=== PATIENT | male | born 1955 | race Caucasian/White ===

== ENCOUNTER 2024-10-07 18:18 | Observation (INO) | payer BC, SELFPAY ==
[2024-10-07] VITALS (10 sets, daily range): BP systolic 140–169; BP diastolic 88–112; PULSE 75–81; BMI 27.3; BMI 27.1
--- NOTE | 2024-10-07 15:47 | ED.GENMED ---
History of Present Illness
General
Chief Complaint: Heart Rate Problem
Source: patient and physician
Time Seen by Provider: 10/07/24 15:30
History of Present Illness
History of Present Illness:
68-year-old male with past medical history of hypertension hyperlipidemia, asthma presenting to the emergency department for evaluation at the request of primary care provider who is sending the patient from her office for evaluation after the
patient has been experiencing some exertional dyspnea as well as near syncopal events for the past year but acutely worse over the last week or so to the point where patient is now ambulating just a few steps and feeling as if he is going to pass
out. Patient states there is no chest pain with this but his son did state that the patient did note that he had some left arm pain and mention that he felt a little sweaty earlier today as well. Patient denies any fevers, chills, rigors, cough,
current chest pain or any symptoms presently. Patient's primary care provider did note that the patient's heart rate at the office would range from 60 bpm to up as high as around the 130 beats per minute. Patient notes that he had a cardiac workup
maybe about 4 years or so ago with a stress test and echocardiogram and recalls these test being unremarkable for any pathologies. Family history was noted for father passing away at the age of 59 due to an NM and his grandfather having a few
strokes. Also of note, patient does not take any medications for his hypertension or hypercholesterolemia as he states that he had some side effects from the blood pressure medicine so decided to stop taking this a few years ago.
Past History
Past History
ED Past Medical History: Asthma, HTN and Hypercholesterolemia
ED Past Surgical History: Orthopedic, Tonsilectomy and Other
Social History
Tobacco: Non-smoker
Alcohol: Occasional
Drug: None
Personal:
Living: with family
Employment: Employed
Review of Systems
Review of Systems
All Other Systems: ROS reviewed and negative except as documented in HPI and ROS
Phy Exam
Physical Exam
Physical Exam:
GENERAL: Alert , in no apparent distress
HEAD: NCAT
EYE: conjunctiva clear
NECK: Supple
ENT: o/p clr, mmm.
CARDIAC: Regular rate and rhythm, no murmur
LUNGS: Clear breath sounds bilaterally, no acute respiratory distress, no wheezes/rales/rhonchi
NEUROLOGICAL: Alert and oriented
SKIN: Warm and dry, skin intact.
MUSCULOSKELETAL: well perfused.
PSYCH: Normal and appropriate interaction.
Scores
Heart Failure Risk
Heart Failure Risk Score: Yes
History of Stroke or TIA: No
History of intubation for respiratory distress: No
Heart rate on ED arrival >/= 110: No
SaO2 <90% on arrival on room air: No
HR >/=110 during 3min walk test (or too ill to perform test): No
ECG has acute ischemic changes: No
Urea >/=12mmol/L (BUN 33.6mg/dL): No
Serum CO2>/=35mmol/L: No
Troponin I or T elevated to NM Level (0.4mg/dL): No
NT-proBNP >/=5,000ng/L (5,000pg/ml): No
HF Risk Score: 0
Admission Status: LOW RISK 2.8% Consider discharge to home with f/u visit to PCP/Rv Repair Technician
Heart Score for Chest Pain Patients
STEMI patient?: No
History: Moderately Suspicious
ECG: Normal
Age: >/= 65 years
Risk Factors: 1 or 2 Risk Factors
Troponin: </= Normal Limit
Heart Score for Chest Pain Patients: 4
Heart Score Risk: 20.3% MACE over next 6 weeks
Withdrawal Assessment of Alcohol
Withdrawal Assessment Completed?: Not applicable
Course
Orders/Labs/Results
Orders:
Orders
10/07/24 13:27
EKG [Electrocardiogram (*1)] Urgent
Reason for Study: Tachycardia
EKG- Treatment ONCE
10/07/24 15:31
Orthostatic VS- Treatment ONCE
CR Chest - 2 Views Urgent
Comment:
Reason For Exam: SMITH
10/07/24 15:54
Aspirin Chewable [Low Strength Aspirin] 324 mg PO NOW STA
10/07/24 16:13
Basic Metabolic Panel Urgent
Complete Blood Count/With Diff Urgent
Magnesium Urgent
NT-proBNP Urgent
TSH Urgent
Troponin I Urgent
Abnormal Lab Results
10/07/24
16:13
WBC 12.3 H 10^3/uL
(4.8-10.8)
Absolute Neuts (auto) 7.6 H 10^3/uL
(1.4-6.5)
Absolute Lymphs (auto) 3.7 H 10^3/uL
(1.2-3.4)
Absolute Monos (auto) 0.7 H 10^3/uL
(0.1-0.6)
BUN 27 H mg/dl
(9-20)
Glucose 128 H mg/dl
(70-99)
10/07/24 16:13
10/07/24 16:13
Vital Signs
Initial and Last Documented VS:
Initial Vital Signs
Temp Pulse Resp BP Pulse Ox
98.3 F 93 19 158/105 99
10/07/24 13:32 10/07/24 13:32 10/07/24 13:32 10/07/24 13:32 10/07/24 13:32
Last Documented Vital Signs
Temp Pulse Resp BP Pulse Ox
98.3 F 73 17 146/109 97
10/07/24 13:32 10/07/24 16:45 10/07/24 16:45 10/07/24 16:14 10/07/24 16:45
MDM/Problems Addressed
Differential Diagnosis Includes:
Cardiac arrhythmia/dysrhythmia, valvular dysfunction, ACS, CHF
MDM/Problems Addressed:
68-year-old male presenting to the ER at the request of primary care provider for evaluation of patient experiencing multiple near syncopal events that have been gradually worsening for the better part of the last few weeks to the point where
patient is now not even able to work due to his symptoms. Patient is currently asymptomatic. Hemodynamically stable EKG without any significant changes from past. Patient had an echocardiogram done in 2019 which did not show any significant
abnormalities. Based off history and presentation I do have considerable concern that patient is having some type of cardiac abnormality that is leading to his symptoms. Anticipate patient will be admitted for further evaluation and testing with
cardiology services.
*Radiology
Radiology exam reviewed: radiology read reviewed
*Pulse Oximetry
Patient hypoxic: no
*EKG
Interpreted by ED Provider?: Yes
Comparison EKG: no changes
Heart Rate: 86
Rate: normal
Rhythm: sinus
[place]: right axis deviation
*Rehab Trainer Interpretation
Rate: normal
Rhythm: sinus
*Critical Care Note
Total Time (30-74mins, 75-104mins- exclusive of procedures): Not Applicable
Data Reviewed
Review of Other/Old Records Reveals: Labs and Records
Patient Management
Discussion with other providers: Hospitalist
Escalation/DeEscalation of care consider admission/obs:
Hospitalist team notified and accepts patient for continued evaluation and treatment. They will consult with cardiology team for further evaluation.
ED Attending Note
-
Portions of this chart may have been created with voice recognition software.� Occasional wrong word or��sound alike� substitutions may have occurred due to the inherent limitations of voice recognition software.
Discharge Plan
Departure
Patient Disposition: Admit
Date of Disposition: 10/07/24
Time of Disposition: 17:09
Presentation/result/management discussed w/ accepting MD/DO: Hospitalist
Discharge Problem:
Exertional dyspnea, Near syncope, Hypertension
Prescriptions:
No Action
trazodone 50 mg Tablet
100 mg PO HSPRN PRN (Reason: sleep)
montelukast 10 mg Tablet
10 mg PO DAILY
albuterol sulfate 90 mcg/actuation Hfa Aerosol Inhaler
2 puff INHALATION R Q4HPRN PRN (Reason: sob)
Arnuity Ellipta 100 mcg/actuation Blister With Device
1 inh INHALATION R DAILY
Referrals:
Jenn Marshall MD [Family Provider] -
Interventions
Interventions:
*Risk Screen - Suicide Last Done: 10/07/24 13:32
*General Assessment Last Done: 10/07/24 15:47
*Neglect/Abuse Screening Last Done: 10/07/24 13:32
ED- Fall Risk Assessment Last Done: 10/07/24 15:47
*ED COVID-19 Vaccine History Last Done: 10/07/24 15:47
ED- Cardiac Assessment Last Done: 10/07/24 15:47
ED- Neurological Assessment Last Done: 10/07/24 15:47
ED- Pulmonary Assessment Last Done: 10/07/24 15:47
Discharge Date and Time
Print Language: KAZAKH
[2024-10-07] MEDS: LOW STRENGTH ASPIRIN 324 MG PO (16:06)
[2024-10-07 16:25] LABS: % Basophils 0.4 % (0-2); % Eosinophils 1.1 % (0-6); % Immature Granulocytes 0.3 % (0-0.5); % Lymphocytes 30.3 % (20.5-51.1); % Monocytes 5.7 % (1.7-9.3); % Neutrophils 62.2 % (42.2-75.2); Absolute Basophils 0.1 10^3/uL (0-0.2); Absolute Eosinophils 0.1 10^3/uL (0-0.7); Absolute Lymphocytes 3.7 10^3/uL (1.2-3.4); Absolute Monocytes 0.7 10^3/uL (0.1-0.6); Absolute Neutrophils 7.6 10^3/uL (1.4-6.5); Hemoglobin 15.8 g/dL (13.0-18.0); Mean Corp Hgb Conc. 34.3 g/dL (33.0-37.0); Mean Corpuscular Hgb 29.4 pg (27.0-31.0); Mean Corpuscular Volume 85.7 fL (80.0-94.0); Nucleated Red Blood Cells % 0 % (-); Platelet Count 283 10^3/uL (130-400); Red Blood Cell Count 5.37 10^6/uL (4.70-6.10); Red Cell Dist. Width 13.8 % (11.5-14.5); White Blood Cell Count 12.3 10^3/uL (4.8-10.8)
[2024-10-07 16:45] LABS: Blood Urea Nitrogen 27 mg/dl (9-20); Carbon Dioxide 28 mmol/L (22-30); Chloride 101 mmol/L (98-107); Estimated Creatinine Clearance 83 ml/min; Glucose 128 mg/dl (70-99); Magnesium 2.2 mg/dl (1.6-2.3); Potassium 4.4 mmol/L (3.5-5.1); Sodium 141 mmol/L (135-145); eGFR > 60.00
[2024-10-07 17:01] LABS: NT-proBNP 532 pg/ml; Troponin I 0.012 ng/ml
[2024-10-07 17:15] LABS: TSH 0.75 uIU/ml (0.47-4.68)
--- NOTE | 2024-10-07 17:23 | HPS.HSE ---
Family Physician
-
Family Physician: Jenn Marshall MD
Chief Complaint
-
syncope
History of Present Illness
Mr. Zachery Louis is a 68 yo man with hx asthma, essential HTN, HLD sent from PCP for further work-up of near syncopal events over past week that occur with exertion.
Patient reports a couple of episodes one year ago when he was on a trip where stood up and felt lightheaded. Over past week he has had 3-4 episodes a day of feeling like he going to pass out and needs to sit down. Denies chest pain. Son reported
to ER physician that he had left arm pain earlier although patient denies. He states these episodes occur when up and walking around in his shop or lifting heavy objects. Denies complete syncopal episode. He states he is eating and drinking well.
No bowel/bladder incontinence, no confusion following episodes. Last time pre-syncope occurred was yesterday and he is here because asked him to come.
No nausea/vomiting/abdominal pain. No LE swelling. No rash. No new medications.
He was on anti-HTN medications in past but stopped secondary to side effects.
Family history notable for father passing away at age 59 secondary to IA, grandfather with history of CVA.
Medical History
Past Medical History
Past Medical History: Reports Asthma, HTN and Hypercholesterolemia
Past Surgical History: Reports Orthopedic
Social History
Tobacco: Non-smoker
Alcohol: None
Family History
Family History: Not pertinent and Early CAD
Allergies / Home Medications
Allergies reflects when Allergies were last updated in [facility].
Home Medications with original date entered in [facility]
Allergy/Medication List:
Allergies
Allergy/AdvReac Type Severity Reaction Status Date / Time
cat dander Allergy Pharmacy Verified 01/14/22 16:57
to Review
dogs Allergy itchy Uncoded 01/14/22 16:57
eyes,
asthma
Home Medications
albuterol sulfate 90 mcg/actuation aerosol inhaler 2 puff inhalation R Q4HPRN PRN sob 10/07/24
fluticasone furoate 100 mcg/actuation blister powder for inhalation (Arnuity Ellipta) 1 inh inhalation R DAILY Lung/Breathing Issues 10/07/24
montelukast 10 mg tablet 10 mg PO DAILY Allergies 10/07/24
trazodone 50 mg tablet 100 mg PO HSPRN PRN sleep 10/07/24
Review of Systems
-
History Source: Patient
A 12 point ROS was completed and negative except as noted: Yes
Physical Exam
Vital Signs
Vital Signs
Temp Pulse Resp BP Pulse Ox
98.3 F 73 17 146/109 97
10/07/24 13:32 10/07/24 16:45 10/07/24 16:45 10/07/24 16:14 10/07/24 16:45
Physical Exam
General: No Apparent Distress
HEENT: PERRLA
Respiratory: Clear; No Wheezes
Cardiac: S1/S2 and Regular Rhythm
GI: Soft and Non Tender
Musculoskeletal: No Edema
Skin: Warm and Dry; No Rash
Neuro: AO x 3
Psych: Calm
Laboratory Results
-
10/07/24 16:13
10/07/24 16:13
Laboratory Results
Troponin I 0.012 ng/ml 10/07/24 16:13
Data Reviewed
-
Diagnostic Radiology: Report Reviewed by me
Lab Data: Labs Reviewed by me
Impression/Plan
-
Mr. Zachery Louis is a 68 yo man with hx asthma, essential HTN, HLD sent from PCP for further work-up of near syncopal events over past week.
Triage VS: T 98.3, P 93, RR 19, BP 158/105, SpO2 99%
LABS: WBC 12.3, Hg 15.8, PLT 283, Na 141, K+ 4.4, CO2 28, BUN 27, Cr 0.8, Glucose 128, Trop 0.012, BNP 532, TSH 0.75
ekg: NSR @ 86, Q waves anterior leads
CXR
IMPRESSION:
No acute cardiopulmonary process.
Near Syncope
-admit to telemetry
-obtain d-dimer
-trend Troponin
-TTE
-cardiology consult given patient's family history and occurs with exertion
Asthma
-REFUGE MANAGER inhalers
DVT PPx lovenox subQ
FULL CODE
[2024-10-07] MEDS: FLOVENT 44 MCG INHALER 2 PUFF INH (20:08)
[2024-10-07] MEDS: NSS 500 IV (20:17)
[2024-10-07 22:41] LABS: Troponin I < 0.012 ng/ml
[2024-10-08] VITALS (10 sets, daily range): BP systolic 128–187; BP diastolic 74–114; PULSE 77–89
[2024-10-08 04:33] LABS: Hematocrit 43.4 % (39.0-52.0); Hemoglobin 14.9 g/dL (13.0-18.0); Mean Corp Hgb Conc. 34.3 g/dL (33.0-37.0); Mean Corpuscular Hgb 30.7 pg (27.0-31.0); Mean Corpuscular Volume 89.5 fL (80.0-94.0); Mean Platelet Volume 9.1 fL (7.4-10.4); Platelet Count 253 10^3/uL (130-400); Red Blood Cell Count 4.85 10^6/uL (4.70-6.10); Red Cell Dist. Width 13.5 % (11.5-14.5); White Blood Cell Count 8.5 10^3/uL (4.8-10.8)
[2024-10-08 04:57] LABS: Blood Urea Nitrogen 25 mg/dl (9-20); Calcium 9.2 mg/dl (8.4-10.2); Carbon Dioxide 27 mmol/L (22-30); Chloride 104 mmol/L (98-107); Estimated Creatinine Clearance 80 ml/min; Glucose 122 mg/dl (70-99); Magnesium 2.2 mg/dl (1.6-2.3); Potassium 4.4 mmol/L (3.5-5.1); Sodium 140 mmol/L (135-145); eGFR > 60.00
[2024-10-08 05:50] LABS: Troponin I < 0.012 ng/ml
[2024-10-08] MEDS: FLOVENT 44 MCG INHALER 2 PUFF INH (07:54)
[2024-10-08] MEDS: SINGULAIR 10 MG PO (08:26)
--- NOTE | 2024-10-08 08:28 | CON.CAR ---
Addendum entered and electronically signed by Sunil Rees MD 10/08/24 13:07:
68 yo with PMH of HTN (untreated, reported side effects to meds in past), FH CAD is admitted with SMITH and near syncope. Symptoms started about 1 year old, and seem to be progressing. There is no chest pain. Exam with RRR, no murmurs, no edema.
Tele and EKG: NSR. Cr 0.8.
Will start with echo to assess LVEF and valves. If echo is normal, we will recommend stress test: inpatient vs outpatient to determined.
HTN. Untreated prior to admission. Amlodipine was started by hospitalist team. May need to add agent with quicker onset of action such as lisinopril prior to discharge.
Original Note:
Consultation
Consultation Request
Date/Time Consultation Requested: 10/07/2024 19:30
Date/Time Consultation Performed: 10/08/2024 08:30
Requesting Provider: Dr. George
Performing Provider: JAMIR Olivares for Dr. Rees
Reason for Consultation: Exertional dyspnea
Medical History
-
Chief Complaint: Presyncope
History of Present Illness:
Zachery Louis is a 68-year-old male (formerly followed by Dr. Shi), with hypertension (on no medical therapy), dyslipidemia, and asthma who presented to the emergency department with a chief complaint of near syncope. Symptoms started nearly 1
year ago as mild in severity. They are now severe. Around 1 year ago he would get short of breath after walking about 25 yards. Now he has to stop multiple times throughout the grocery store. Occasionally, they sound orthostatic in nature as
symptoms occur after standing. Now they are occurring when he is ambulating on a flat surface or picks up an object. He gets very lightheaded where he feels like he may pass out. He reports the lightheadedness is severe. He has no chest pain.
Coronary artery disease notable in his father, at the age of 59 secondary to myocardial infarction.
Past Medical History
Past Medical History: Asthma, HTN and Hypercholesterolemia
Past Surgical History: Orthopedic
Social History
Tobacco: Former Smoker (Pipe)
Alcohol: None
Drug: None
Personal:
Living: With Family
Employment: Retired
Family History
Family History: Early CAD (Father at the age of 59 due to complications of myocardial infarction.)
Allergies / Home Medications
Allergy/AdvReac Type Severity Reaction Status Date / Time
cat dander Allergy Unknown Verified 10/07/24 19:51
dog dander Allergy itchy Verified 10/07/24 19:51
eyes,
asthma
�Medication �Instructions �Recorded �Confirmed �Type
albuterol sulfate 90 mcg/actuation 2 puff inhalation R Q4HPRN PRN sob 10/07/24 10/07/24 History
aerosol inhaler
fluticasone furoate 100 1 inh inhalation R DAILY 10/07/24 10/07/24 History
mcg/actuation blister powder for Lung/Breathing Issues
inhalation (Arnuity Ellipta)
montelukast 10 mg tablet 10 mg PO DAILY Allergies 10/07/24 10/07/24 History
trazodone 50 mg tablet 100 mg PO HSPRN PRN sleep 10/07/24 10/07/24 History
Review of Systems
-
History Source: Patient
All other systems: Negative unless noted
Constitutional: Fatigue
EENT: No Symptoms
Respiratory: No Symptoms
Cardiac: Other (Exertional lightheadedness)
Abdomen/GI: No Symptoms
: No Symptoms
Musculoskeletal: No Symptoms
Skin: No Symptoms
Neurological: Dizzy
Endocrine: No Symptoms
Hematologic/Lymphatic: No Symptoms
Physical Exam
Vital Signs
Temp Pulse Resp BP Pulse Ox
98.6 F 87 16 173/96 97
10/08/24 07:24 10/08/24 07:57 10/08/24 07:57 10/08/24 07:24 10/08/24 07:57
Lab Results
10/08/24 04:11
10/08/24 04:11
Troponin I < 0.012 ng/ml 10/08/24 04:11
Ksh-D-Vxkluuknwgh Pept 532 pg/ml 10/07/24 16:13
Physical Exam
General: Well Developed, Well Nourished, No Apparent Distress and Comfortable
HEENT: Normocephalic, Anicteric and Moist Mucous Membranes
Respiratory: Clear and Non Labored Respirations
Cardiac: S1/S2 and Regular Rhythm
Breast: Deferred by me
GI: Soft, Non Tender, Non Distended and Normal Bowel Sounds
Rectal: Deferred by Provider
Genito-urinary: No Costovertebral Tender
Musculoskeletal: No Clubbing, No Cyanosis and No Edema
Skin: Warm and Dry
Neuro: AO x 3
Hematologic/Lymphatic: No Lymphadenopathy
Psych: Calm
Impression / Plan
-
BACKGROUND: 68M with complaints of pre syncope
IMPRESSION/PLAN:
Exertional lightheadedness with presyncope
-Some situations on like orthostasis, but most severe is with ambulation
-Troponin <0.012 x 3, D-dimer 0.30, CXR without acute processes
-Echocardiogram, likely ischemic evaluation
Hypertension
-He did not tolerate multiple medications, he also has an element of orthostasis
HLD, fasting lipid panel in a.m.
Asthma, no acute exacerbation, per primary
Data Reviewed
-
EKG: Report Reviewed by me (Sinus rhythm, right axis deviation, anterior Q waves, rate 86)
Radiology: Report Reviewed by me (CXR: No acute cardiopulmonary process.)
Labs: Labs Reviewed by me
Old Records: Reviewed
--- NOTE | 2024-10-08 10:45 | PTCARENOTE ---
Patient's EKG today shows NSR. Echocardiogram completed and results pending. Denies lightheadedness or dizziness.
--- NOTE | 2024-10-08 11:02 | CM ---
Pt seen bedside. Pt lives w/ spouse in a 3 story [facility]-1 step to enter.
Independent, denies DME use for daily functioning
Denies SNF hx. Did engage in OP rehab
Denies VN/PT in the past
Denies financial insecurities
Address, point of contact, and insurance verified
PCP: Dr. Jenn Marshall
Pharmacy: [facility]
OOBS form reviewed, pt given copy. Copy placed in chart
Per pt, his son can transport at d/c
Plan: Home no needs anticipated
[2024-10-08] MEDS: NORVASC 10 MG PO (12:08)
[2024-10-08] MEDS: APRESOLINE 10 MG IV ×2 (12:38→16:34)
[2024-10-08 13:11] LABS: Troponin I < 0.012 ng/ml
[2024-10-08] MEDS: SYMBICORT 160/4.5 MCG INHALER INH (13:11)
--- NOTE | 2024-10-08 14:09 | W.PN.HOSP.TC ---
Today's Communication/Plan
-
Cardiology recommendations for possible stress test
Amlodipine, most likely will add CLEMENCIA inhibitor within 24 hours
Hydralazine IV as needed
Assessment / Plan
Assessment / Plan
Physical Exam
General: No Apparent Distress
HEENT: PERRLA
Respiratory: Clear; No Wheezes
Cardiac: S1/S2 and Regular Rhythm
GI: Soft and Non Tender
Musculoskeletal: No Edema
Skin: Warm and Dry; No Rash
Neuro: AO x 3
Psych: Calm
Mr. Zachery Louis is a 68 yo man with hx asthma, essential HTN, HLD sent from PCP for further work-up of near syncopal events over past week.
Near Syncope
-admit to telemetry
-no chest pain
-trend Troponin
-TTE - no valv abn, no wall motion abn. EF 60%
-cardiology consult
-stress test inpt v outpt
?Asthma v COPD as smokes 1ppd at home
-states has 'asthma attacks' time to time - causing these episodes as described in H&P
-albuterol prn
-add symbicort, dc fluticasone
-needs PFTs as outpatient
-asthma was dc 2 years ago which i doubt; needs PFTs outpatient
# Essential hypertension
� Amlodipine
-start acei prior to dc most likely
-Hydral prn
DVT PPx lovenox subQ
FULL CODE
Anticipated Discharge: 24 - 48 hours
Subjective/Interval History
-
Date of Service: October 08, 2024
No acute events
Objective Data
-
Labs:
Laboratory Results
10/08/24
04:11
WBC 8.5
Hgb 14.9
Hct 43.4
Plt Count 253
Sodium 140
Potassium 4.4
Chloride 104
Carbon Dioxide 27
BUN 25 H
Creatinine 0.8
Glucose 122 H
Calcium 9.2
Vital Signs:
Vital Signs
Temp Pulse Resp BP Pulse Ox
98.6 F 77 18 172/99 98
10/08/24 11:42 10/08/24 12:38 10/08/24 11:42 10/08/24 13:12 10/08/24 11:42
I&O
10/07/24 10/08/24 10/09/24
06:59 06:59 06:59
Intake Total 240 / 240
Balance 240 / 240
Review of Systems
-
History Source: Patient
All other systems: Not reviewed unless documented
Data Reviewed
-
Diagnostic Radiology: Image personally visualized and interpreted and Report Reviewed by me
Labs: Labs Reviewed by me
--- NOTE | 2024-10-08 16:07 | W.PN.UPDATE ---
Update Note
Progress Note Update
Echocardiogram without acute findings.
Lisinopril 5 mg added to medication regimen.
[facility] ([facility]) will call him on Friday to arrange for exercise nuclear stress testing in the outpatient setting.
Please call back with additional questions.
Thank you for this consultation.
[2024-10-08] MEDS: ZESTRIL 5 MG PO (16:31)
--- NOTE | 2024-10-08 17:28 | PTCARENOTE ---
Addendum entered by Eri Savage RN 10/08/24 18:00:
Cardizem blous of 15 mg given. Cardizem gtt started at 5 mg/hour. Patient's heart rate currently 99.
Addendum entered by Eri Savage RN 10/08/24 17:43:
Patient in SVT - rate high 140s. Cardiology notified and additional EKG completed. Cardizem drip ordered.
Original Note:
Patient with heart rate in 140s. Patient states that he feels as though his heart is beating fast and some dizziness. EKG completed which appears to be SVT. Cardiology made aware. Patient instructed to do do vagal maneuvers. Telemetry maintained.
--- NOTE | 2024-10-08 17:37 | W.PN.UPDATE ---
Update Note
Progress Note Update
Called to evaluate patient. He is in SVT. He endorses palpitations.
Denies chest pain, dizziness, and presyncope.
Stop amlodipine. Intravenous diltiazem bolus. Initiation of diltiazem drip.
Follow telemetry.
[2024-10-08] MEDS: CARDIZEM 15 MG IV (17:46)
[2024-10-08] MEDS: CARDIZEM 125 IV (17:50)
[2024-10-08] MEDS: LOVENOX 40 MG SC (18:18)
[2024-10-08] MEDS: SYMBICORT 160/4.5 MCG INHALER 2 PUFF INH (20:09)
[2024-10-09 03:37] VITALS: BP 163/97
[2024-10-09 06:48] LABS: Hematocrit 45.7 % (39.0-52.0); Hemoglobin 15.5 g/dL (13.0-18.0); Mean Corp Hgb Conc. 33.9 g/dL (33.0-37.0); Mean Corpuscular Volume 88.6 fL (80.0-94.0); Mean Platelet Volume 9.4 fL (7.4-10.4); Platelet Count 273 10^3/uL (130-400); Red Blood Cell Count 5.16 10^6/uL (4.70-6.10); Red Cell Dist. Width 13.8 % (11.5-14.5); White Blood Cell Count 15.1 10^3/uL (4.8-10.8)
[2024-10-09 07:18] LABS: ALT (SGPT) 17 U/L (0-50); AST (SGOT) 19 U/L (17-59); Albumin 4.4 g/dl (3.5-5.0); Alkaline Phosphatase 73 U/L (38-126); Blood Urea Nitrogen 23 mg/dl (9-20); Calcium 9.6 mg/dl (8.4-10.2); Carbon Dioxide 24 mmol/L (22-30); Chloride 102 mmol/L (98-107); Estimated Creatinine Clearance 80 ml/min; Glucose 144 mg/dl (70-99); Potassium 4.1 mmol/L (3.5-5.1); Sodium 139 mmol/L (135-145); Total Protein 6.9 g/dl (6.3-8.2); eGFR > 60.00
[2024-10-09 07:30] VITALS: BP 140/80; BP 144/82; BP 146/79; PULSE 102; PULSE 105; PULSE 93
[2024-10-09] MEDS: SYMBICORT 160/4.5 MCG INHALER 2 PUFF INH (07:41)
[2024-10-09] MEDS: ZESTRIL 5 MG PO (08:15)
[2024-10-09] MEDS: SINGULAIR 10 MG PO (08:15)
[2024-10-09 11:14] VITALS: BP 141/79
--- NOTE | 2024-10-09 13:49 | W.PN.CD ---
Today's Communication / Plan
-
Move to Dilt CD 240 a day
Continue Lisinopril 5 a day
May need dose adjusted over time
F/u in our office will be arranged
Cardiology will sign off
Impression / Plan
-
Background: 68M with complaints of pre syncope
Symptomatic SVT, rapid
- Will start Diltiazem CD PO
- Good candidate for ablation
HTN
- Will lkely take at least 2 meds to control
- Let's use DILT for HTN and SVT
- Agree with lisinopril
- He has had untreated HTN for years
- Echo with LVH likely from poorly controlled HTN
HLD, outpt eval appropriate
Asthma, no acute exacerbation, per primary
Subjective:
No CP or dyspnea
Physical Exam
Vital Signs/Labs
Vital Signs
Temp Pulse Resp BP Pulse Ox
98.6 F 93 18 141/79 96
10/09/24 11:14 10/09/24 11:14 10/09/24 11:14 10/09/24 11:14 10/09/24 11:14
10/08/24 10/09/24 10/10/24
06:59 06:59 06:59
Actual Weight 76.26 kg
10/09/24 06:24
10/09/24 06:24
Magnesium 2.2 mg/dl (1.6-2.3) 10/08/24 04:11
TSH 0.75 uIU/ml (0.47-4.68) 10/07/24 16:13
10/07/24
16:13
Gtz-W-Sapqevylymj Pept 532
LAB Results
10/07/24 10/07/24 10/08/24
16:13 22:10 04:11
Troponin I 0.012 < 0.012 < 0.012
10/08/24
12:27
Troponin I < 0.012
Physical Exam
Constitutional: No acute distress
EENT: Anicteric
Cardiovascular: Rhythm & rate is regular and Pedal edema is absent
Respiratory: Respiratory effort normal and Lungs clear to auscul.
GI: Soft and Distention absent
Neuro/Psych: AO x 3
Data Reviewed
-
Date of Service: October 09, 2024
[2024-10-09] MEDS: CARDIZEM CD 240 MG PO (14:15)
--- NOTE | 2024-10-09 15:02 | W.PN.HOSP.TC ---
Addendum entered and electronically signed by Harsha Jovel MD 10/10/24 15:57:
[id number]
Original Note:
Today's Communication/Plan
-
Diltiazem 240 mg a day
Lisinopril 5 mg
Follow-up cardiology closely outpatient, including for possible stress test
Switch to Symbicort
Follow-up PCP, cardiology, pulmonary (also for pulmonary function test)
Assessment / Plan
Assessment / Plan
Physical Exam
General: No Apparent Distress
HEENT: PERRLA
Respiratory: Clear; No Wheezes
Cardiac: S1/S2 and Regular Rhythm
GI: Soft and Non Tender
Musculoskeletal: No Edema
Skin: Warm and Dry; No Rash
Neuro: AO x 3
Psych: Calm
Mr. Zachery Louis is a 68 yo man with hx asthma, essential HTN, HLD sent from PCP for further work-up of near syncopal events over past week.
Near Syncope
Symptomatic SVT, rapid
� I suspect secondary to symptomatic rapid SVT
-admit to telemetry
-no chest pain
-trend Troponin
-TTE - no valv abn, no wall motion abn. EF 60%
-cardiology consult
-stress test inpt v outpt
�Switch diltiazem drip to diltiazem CD p.o.
� Good candidate for ablation, follow cardiology outpatient
?Asthma v COPD as smokes 1ppd at home
-states has 'asthma attacks' time to time despite on fluticasone- causing these episodes as described in H&P
-albuterol prn
-add symbicort, dc fluticasone
-needs PFTs as outpatient
-asthma was dc 2 years ago which i doubt; needs PFTs outpatient
# Essential hypertension
� Start lisinopril 5 mg
Diltiazem CD2 140 mg a day
Echocardiogram with [facility]
Follow-up outpatient
#Hyperlipidemia
� Outpatient eval
DVT PPx lovenox subQ
FULL CODE
More than 30 minutes spent in discharge including
Final examination of the patient
Summarizing hospital stay
Instructions for continuing care to all relevant caregivers
Preparation of discharge records, prescriptions, and referral forms
Total time spent (36 in minutes):
Anticipated Discharge: Today
Subjective/Interval History
-
Date of Service: October 09, 2024
SVT yesterday evening, not controlled on Cardizem drip�transition to p.o. Cardizem
� Feels much better
Objective Data
-
Labs:
Laboratory Results
10/09/24
06:24
WBC 15.1 H
Hgb 15.5
Hct 45.7
Plt Count 273
Sodium 139
Potassium 4.1
Chloride 102
Carbon Dioxide 24
BUN 23 H
Creatinine 0.8
Glucose 144 H
Calcium 9.6
Total Bilirubin 2.0 H
AST 19
ALT 17
Alkaline Phosphatase 73
Vital Signs:
Vital Signs
Temp Pulse Resp BP Pulse Ox
98.6 F 89 18 141/79 96
10/09/24 11:14 10/09/24 14:15 10/09/24 11:14 10/09/24 11:14 10/09/24 11:14
I&O
10/08/24 10/09/24 10/10/24
06:59 06:59 06:59
Intake Total 240 / 240 840 / 840
Balance 240 / 240 840 / 840
Review of Systems
-
History Source: Patient
All other systems: Not reviewed unless documented
Data Reviewed
-
Diagnostic Radiology: Image personally visualized and interpreted and Report Reviewed by me
Labs: Labs Reviewed by me
--- NOTE | 2024-10-09 15:09 | W.DS.TRANS ---
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
-
Discharge Instructions:
Discharge Diagnosis/Procedures PreSyncope
Rapid SVT
Asthma v COPD
Diet Low Cholesterol,Low Fat
Activity As tolerated
Blood Work f/u [facility], CMP outpatient in 5 days with pcp
Others Tests A stress test has been ordered for you. The
cardiology office will call you to arrange.
Instructions:
Stand-Alone Forms:
Changes to Home Medications: Yes
Discharge Medications:
DC Medications w/original date entered in [facility]
albuterol sulfate 90 mcg/actuation aerosol inhaler 2 puff inhalation R [id number] PRN sob 10/07/24
fluticasone furoate 100 mcg/actuation blister powder for inhalation (Arnuity Ellipta) 1 inh inhalation R DAILY Lung/Breathing Issues 10/07/24
montelukast 10 mg tablet 10 mg PO DAILY Allergies 10/07/24
trazodone 50 mg tablet 100 mg PO HSPRN PRN sleep 10/07/24
diltiazem HCl 240 mg capsule,extended release 24 hr 240 mg PO DAILY 30 days #30 caps 10/09/24
lisinopril 5 mg tablet 5 mg PO DAILY 30 days #30 tabs 10/09/24
Home Medication Changes
diltiazem HCl 240 mg capsule,extended release 24 hr 240 mg PO DAILY 30 days #30 caps 10/09/24
lisinopril 5 mg tablet 5 mg PO DAILY 30 days #30 tabs 10/09/24
Pending Results: No
[2024-10-09 15:17] VITALS: BP 150/83
== END 2024-10-09 16:21 | disposition home or self-care (01) ==
LOC: 4 EAST ACU 18:18
PROVIDERS: Physician Assistant Medical; ADMITTING PHYSICIAN Student in an Organized Health Care Education/Training Program; ATTENDING PHYSICIAN Internal Medicine; CONSULT PHYSICIAN Internal Medicine; EMERGENCY PHYSICIAN Emergency Medicine; FAMILY PHYSICIAN Family Medicine
DX: R55 Syncope and collapse (principal); R07.9 Chest pain, unspecified; I11.9 Hypertensive heart disease without heart failure; E78.00 Pure hypercholesterolemia, unspecified; J44.89 Other specified chronic obstructive pulmonary disease; E78.5 Hyperlipidemia, unspecified; R06.00 Dyspnea, unspecified; R42 Dizziness and giddiness; I47.10 Supraventricular tachycardia, unspecified; M79.602 Pain in left arm; Z82.49 Family history of ischemic heart disease and other diseases of the circulatory system; Z82.3 Family history of stroke; Z79.51 Long term (current) use of inhaled steroids; Z87.891 Personal history of nicotine dependence
CPT/HCPCS: 71046; 80048; 80053; 83735; 83880; 84443; 84484; 85025; 85027; 85379; 93005; 93306; 94640; 99285; G0378

== ENCOUNTER → 2024-10-14 15:50 | Outpatient (REF) | payer BC, SELFPAY ==
[2024-10-14 17:45] LABS: % Basophils 0.6 % (0-2); % Eosinophils 2.3 % (0-6); % Immature Granulocytes 0.3 % (0-0.5); % Lymphocytes 30.8 % (20.5-51.1); % Monocytes 7.4 % (1.7-9.3); % Neutrophils 58.6 % (42.2-75.2); Absolute Basophils 0.1 10^3/uL (0-0.2); Absolute Eosinophils 0.2 10^3/uL (0-0.7); Absolute Lymphocytes 2.7 10^3/uL (1.2-3.4); Absolute Monocytes 0.7 10^3/uL (0.1-0.6); Absolute Neutrophils 5.2 10^3/uL (1.4-6.5); Hematocrit 39.8 % (39.0-52.0); Hemoglobin 13.9 g/dL (13.0-18.0); Mean Corp Hgb Conc. 34.9 g/dL (33.0-37.0); Mean Corpuscular Hgb 30.5 pg (27.0-31.0); Mean Corpuscular Volume 87.3 fL (80.0-94.0); Mean Platelet Volume 9.5 fL (7.4-10.4); Nucleated Red Blood Cells % 0 % (-); Platelet Count 303 10^3/uL (130-400); Red Blood Cell Count 4.56 10^6/uL (4.70-6.10); Red Cell Dist. Width 13.4 % (11.5-14.5); White Blood Cell Count 8.8 10^3/uL (4.8-10.8)
[2024-10-14 18:01] LABS: ALT (SGPT) 17 U/L (0-50); AST (SGOT) 18 U/L (17-59); Albumin 4.4 g/dl (3.5-5.0); Alkaline Phosphatase 70 U/L (38-126); Blood Urea Nitrogen 26 mg/dl (9-20); Calcium 10.1 mg/dl (8.4-10.2); Carbon Dioxide 30 mmol/L (22-30); Chloride 99 mmol/L (98-107); Glucose 208 mg/dl (70-99); Sodium 140 mmol/L (135-145); Total Bilirubin 0.5 mg/dl (0.2-1.3); Total Protein 6.9 g/dl (6.3-8.2); eGFR > 60.00
== END ==
LOC: REG 15:50
PROVIDERS: ATTENDING PHYSICIAN Family Medicine
DX: I10 Essential (primary) hypertension (principal); J45.40 Moderate persistent asthma, uncomplicated; E78.2 Mixed hyperlipidemia; E11.65 Type 2 diabetes mellitus with hyperglycemia; D72.829 Elevated white blood cell count, unspecified
CPT/HCPCS: 36415; 80053; 85025

== ENCOUNTER → 2024-10-19 07:05 | Outpatient (REF) | payer BC, SELFPAY | LOC: DHCBC/DCA 07:05 | PROVIDERS: ATTENDING PHYSICIAN Internal Medicine; FAMILY PHYSICIAN Family Medicine | DX: R06.09 Other forms of dyspnea (principal); R55 Syncope and collapse; R94.31 Abnormal electrocardiogram [ECG] [EKG]; I51.7 Cardiomegaly | CPT/HCPCS: 78452; 93017; A9500; J2785 ==